=== PATIENT | male | born 1980 | race Caucasian/White ===

== ENCOUNTER 2016-06-21 16:55 | Emergency (ER) | payer OTHER ==
--- NOTE | 2016-06-21 17:14 | CPEKG ---
Heart Rate: 80 RR Interval: 750 P-R Interval: 160 QRSD Interval: 104 QT Interval: 380 QTC Interval: 439 P [place]: 64 QRS [place]: 23 T Wave [place]: 63 EKG Severity - NORMAL ECG - EKG Impression: SINUS RHYTHM Electronically Signed By: Abraham Hylton 21-Jun-2016 19:13:21
--- NOTE | 2016-06-21 17:31 | EDPHY ---
H & P Stated Complaint: Chest tightness;similiar episode Friday;saw PCP yesterday w/ nl EKG - Personal History Current Tetanus Diphtheria and Acellular Pertussis (TDAP): Yes - Medical/Surgical History Other PMH: +family hx heart disease - Social History Smoking Status: Never smoked Time Seen by Provider: 06/21/16 16:59 HPI/ROS: Chief complaint: Chest pain History of present illness: This is an otherwise healthy 36-year-old male who presents to the emergency department for evaluation of chest pain. Patient reports the onset of symptoms approximately 15 minutes ago. He describes a pressure with some palpitations. He denies precipitating factors. He denies alleviating factors. He denies other associated signs or symptoms including no fevers, no cold symptoms, no cough or trouble breathing, no pain or swelling in the legs, no dizziness, lightheadedness, or syncope. Patient had a somewhat similar episode on Friday, approximately 5 days ago. He was working out at the gym, he states he became nauseated and ultimately a syncopal episode. He was seen by his primary care doctor this week reports blood studies and EKG were obtained and he was told they were normal. However his primary care doctor's scheduling a stress test through [facility]. Review of systems: A 10 point review of systems was obtained and other than described above was negative (Shukri Chan) - Physical Exam Exam: General Appearance: Alert, nontoxic. Eyes: Pupils equal and round no pallor or injection. ENT, Mouth: Mucous membranes moist. Respiratory: There are no retractions, lungs are clear to auscultation. Cardiovascular: Regular rate and rhythm. Gastrointestinal: Abdomen is soft and nontender, no masses, bowel sounds normal. Neurological: Alert and oriented x4. Strength and sensation intact and symmetrical. Skin: Warm and dry, no rashes. Musculoskeletal: Neck is supple nontender. Extremities are symmetrical, full range of motion. Psychiatric: Patient is oriented X 3, there is no agitation. (Shukri Chan) Constitutional: Initial Vital Signs Temperature (C) 36.7 C 06/21/16 16:56 Heart Rate 95 06/21/16 16:56 Respiratory Rate 18 06/21/16 16:56 Blood Pressure 144/91 H 06/21/16 16:56 O2 Sat (%) 97 06/21/16 16:56 O2 Delivery Mode Room Air Allergies/Adverse Reactions: No Known Allergies Allergy (Unverified 06/21/16 17:00) Home Medications: Medication Instructions Recorded NK [No Known Home Meds] 06/21/16 Medical Decision Making ED Course/Re-evaluation: The patient was evaluated and managed by the physician's assistant associate professor. My cosignature indicates that I reviewed the chart and I agree with the findings and plan of care as documented. I am the secondary supervising physician. ( Stephani Buitrago) Patient discussed with my secondary supervising physician Dr. Stephani Buitrago. Patient presents to the emergency department for chest pain. On presentation he is nontoxic. Afebrile and vital signs are stable. Physical exam is benign. Baseline blood studies are unremarkable. Serial troponin and EKG unchanged. On re-evaluation patient is asymptomatic. Patient does not have significant cardiac risk factors. I believe he is appropriate for outpatient management. He is discharged home. He does have a primary care doctor through [facility] and is currently having a follow-up arrange for a stress test by his PCP. Home care is discussed with patient. Return precautions are given. Patient voiced understanding and agreement with plan. (Shukri Chan) Differential Diagnosis: Included but not limited to ACS, cardiac dysrhythmia, PE, pulmonary infections, pneumothorax, anxiety (Shukri Chan) - Data Points Laboratory Results: Laboratory Results 06/21/16 17:18 06/21/16 17:18 06/21/16 06/21/16 06/21/16 17:18 17:18 17:18 WBC RBC Hgb Hct MCV MCH MCHC RDW Plt Count MPV Neut % (Auto) Lymph % (Auto) [place] % (Auto) Eos % (Auto) Baso % (Auto) Nucleat RBC Rel Count Absolute Neuts (auto) Absolute Lymphs (auto) Absolute Monos (auto) Absolute Eos (auto) Absolute Basos (auto) Absolute Nucleated RBC Immature Gran % Immature Gran # D-Dimer 0.34 ug/mLFEU ug/mLFEU (0.00-0.50) Sodium 138 mEq/L mEq/L (134-144) Potassium 3.8 mEq/L mEq/L (3.5-5.2) Chloride 102 mEq/L mEq/L (97-110) Carbon Dioxide 26 mEq/l mEq/l (22-31) Anion Gap 10 mEq/L mEq/L (8-16) BUN 16 mg/dL mg/dL (7-23) Creatinine 1.1 mg/dL mg/dL (0.7-1.3) Estimated GFR > 60 Glucose 103 mg/dL H mg/dL (70-100) Calcium 10.2 mg/dL mg/dL (8.5-10.4) Troponin I < 0.012 ng/mL ng/mL < 0.012 ng/mL ng/mL (0-0.034) (0-0.034) 06/21/16 17:18 WBC 9.36 10^3/uL 10^3/uL (3.80-9.50) RBC 5.69 10^6/uL 10^6/uL (4.40-6.38) Hgb 16.9 g/dL g/dL (13.7-17.5) Hct 48.3 % % (40.0-51.0) MCV 84.9 fL fL (81.5-99.8) MCH 29.7 pg pg (27.9-34.1) MCHC 35.0 g/dL g/dL (32.4-36.7) RDW 12.7 % % (11.5-15.2) Plt Count 276 10^3/uL 10^3/uL (150-400) MPV 10.2 fL fL (8.7-11.7) Neut % (Auto) 41.0 % % (39.3-74.2) Lymph % (Auto) 45.7 % H % (15.0-45.0) [place] % (Auto) 8.8 % % (4.5-13.0) Eos % (Auto) 3.0 % % (0.6-7.6) Baso % (Auto) 1.2 % % (0.3-1.7) Nucleat RBC Rel Count 0.0 % % (0.0-0.2) Absolute Neuts (auto) 3.84 10^3/uL 10^3/uL (1.70-6.50) Absolute Lymphs (auto) 4.28 10^3/uL H 10^3/uL (1.00-3.00) Absolute Monos (auto) 0.82 10^3/uL H 10^3/uL (0.30-0.80) Absolute Eos (auto) 0.28 10^3/uL 10^3/uL (0.03-0.40) Absolute Basos (auto) 0.11 10^3/uL H 10^3/uL (0.02-0.10) Absolute Nucleated RBC 0.00 10^3/uL 10^3/uL (0-0.01) Immature Gran % 0.3 % % (0.0-1.1) Immature Gran # 0.03 10^3/uL 10^3/uL (0.00-0.10) D-Dimer Sodium Potassium Chloride Carbon Dioxide Anion Gap BUN Creatinine Estimated GFR Glucose Calcium Troponin I Departure - Departure Disposition: Home, Routine, Self-Care Clinical Impression: Chest pain Qualifiers: Chest pain type: unspecified Qualified Code(s): R07.9 - Chest pain, unspecified Condition: Good Instructions: Chest Pain (ED) Additional Instructions: Continue to follow up with your primary care doctor as discussed If symptoms worsen or new symptoms develop return to the closest emergency room for recheck Referrals: NONE *PRIMARY CARE P,. [Primary Care Provider] - As per Instructions [facility] ,. [Edm Groups for Call Sched] - As per Instructions
[2016-06-21 17:32] LABS: % IMMATURE GRANULYOCYTES 0.3 % (0.0-1.1); ABSOLUTE IMMATURE GRANULOCYTES 0.03 10^3/uL (0.00-0.10); ADD DIFF? NO; ADD MORPH? NO; ADD SCAN? NO; ATYPICAL LYMPHOCYTE FLAG 10 (0-99); FRAGMENT RBC FLAG 0 (0-99); HEMATOCRIT 48.3 % (40.0-51.0); HEMOGLOBIN 16.9 g/dL (13.7-17.5); LEFT SHIFT FLG 0 (0-99); LIPEMIA HEMOLYSIS FLAG 90 (0-99); MEAN CELL HEMOGLOBIN 29.7 pg (27.9-34.1); MEAN CELL VOLUME 84.9 fL (81.5-99.8); MEAN PLATELET VOLUME 10.2 fL (8.7-11.7); PLATELET CLUMPS FLAG 10 (0-99); PLATELET COUNT 276 10^3/uL (150-400); RED BLOOD CELL COUNT 5.69 10^6/uL (4.40-6.38); RED CELL DISTRIBUTION WIDTH 12.7 % (11.5-15.2)
[2016-06-21 17:45] LABS: ANION GAP 10 mEq/L (8-16); CALCIUM 10.2 mg/dL (8.5-10.4); CARBON DIOXIDE 26 mEq/l (22-31); CHLORIDE 102 mEq/L (97-110); CREATININE 1.1 mg/dL (0.7-1.3); GLOMERULAR FILTRATION RATE > 60; GLUCOSE 103 mg/dL (70-100); POTASSIUM 3.8 mEq/L (3.5-5.2); SODIUM 138 mEq/L (134-144)
[2016-06-21 17:56] LABS: TROPONIN I < 0.012 ng/mL (0-0.034)
--- NOTE | 2016-06-21 19:28 | CPEKG ---
Heart Rate: 70 RR Interval: 857 P-R Interval: 156 QRSD Interval: 106 QT Interval: 388 QTC Interval: 419 P [place]: 58 QRS [place]: 13 T Wave [place]: 53 EKG Severity - NORMAL ECG - EKG Impression: SINUS RHYTHM Electronically Signed By: Leyla Valencia 23-Jun-2016 21:23:29
[2016-06-21 21:14] VITALS: BP 128/78; PULSE 70; RESP 14; TEMP 98.4; O2SAT 94
== END 2016-06-21 21:14 | disposition home or self-care (01) ==
DX: R07.89 Other chest pain (principal)